=== PATIENT | female | born 2000 | race Caucasian/White ===

== ENCOUNTER 2022-04-12 21:10 | Emergency (ER) | payer OTHER, SELFPAY ==
[2022-04-12 21:21] VITALS: BP 110/71; PULSE 64; RESP 18; TEMP 36.7; O2SAT 99; BMI 19.7
--- NOTE | 2022-04-12 21:51 | ED.GENADULT ---
HPI - General Adult General Chief complaint: Unspecified Complaint, Adult Stated complaint: tight chest, extemities itchy Time Seen by Provider: 04/12/22 21:28 History of Present Illness HPI narrative: This 22-year-old female comes in with report of some itchiness in her extremities this morning. She did take Benadryl which brought relief to those symptoms. Then she developed some tightness in her chest which she does not describe as pain but instead as a feeling like she cannot take of full deep breath. She is otherwise in good health. She does not have any history of asthma. She states that she was sledding down hill a couple days ago and did not have any particular injury event but this was a new activity for her. She denies having any nausea, vomiting, lightheadedness, shortness of breath, or diaphoresis. Related Data Home Medications Medication Instructions Recorded Confirmed No Known Home Medications 04/12/22 04/12/22 Allergies Allergy/AdvReac Type Severity Reaction Status Date / Time No Known Drug Allergies Allergy Verified 04/12/22 21:23 Review of Systems Status of ROS: Reports: 10 or more systems reviewed and unremarkable except as noted in History and below Narrative: Constitutional: No fevers, no weight gain or loss. Eyes: No discharge. No vision changes. HENT: No congestion, no sore throat, no ear pain. Cardiovascular: No chest pain, no palpitations. Respiratory: No shortness of breath, no wheezes, no cough. She feels a tightness across her chest when taking a deep breath. Gastrointestinal: No abdominal pain, no vomiting, no diarrhea. Genitourinary: No dysuria, no hematuria. Musculoskeletal: Normal range of motion. Skin: No rashes. Pruritus this morning relieved with Benadryl. Neurological: No dizziness, weakness, sensory change, speech change. Endo/Heme/Allergies: No bruising or bleeding. No polydipsia. Pysch: no suicidality, no anxiety, no insomnia. All other systems reviewed and are negative. Exam Narrative: Exam Narrative: Constitutional: Well-developed, well-nourished, no acute distress. HEENT: Normocephalic, atraumatic. Neck: Normal range of motion. Nontender. Supple. Heart: Regular. No murmurs. Normal rate. Intact distal pulses. Lungs: Clear to auscultation. No chest discomfort. No wheezes, rhonchi, or rales. Abdomen: Normal bowel sounds. Nontender. No rebound tenderness. Genitalia: Deferred. Back: No midline tenderness. Normal range of motion. Extremities: Normal range of motion. No injury. Skin: Intact. No rash. Warm. No erythema or pallor. Neurologic: No altered sensation. No weakness. Alert and oriented. Psychiatric: No suicidality. No anxiety or depression. No insomnia. Nursing notes and vitals signs are reviewed. Const: Vital Signs, click to edit/add: Vital Signs - 24 hr 04/12/22 21:21 Temperature 98.1 F Pulse Rate [Right Pulse Oximeter] 64 Respiratory Rate 18 Blood Pressure [Ri ght Upper Arm] 110/71 Pulse Oximetry 99 Oxygen Delivery Me thod Room Air Course Vital Signs Vital signs: Initial Vital Signs Temperature 98.1 F 04/12/22 21:21 Temperature Source Temporal Artery Scan 04/12/22 21:21 Pulse Rate 64 04/12/22 21:21 Respiratory Rate 18 04/12/22 21:21 Blood Pressure 110/71 04/12/22 21:21 Blood Pressure Mean 84 04/12/22 21:21 Blood Pressure Position Sitting 04/12/22 21:21 Pulse Oximetry 99 04/12/22 21:21 Oxygen Delivery Method 04/12/22 21:21 Vital Signs Temperature 98.1 F 04/12/22 21:21 Pulse Rate 64 04/12/22 21:21 Respiratory Rate 18 04/12/22 21:21 Blood Pressure 110/71 04/12/22 21:21 Pulse Oximetry 99 04/12/22 21:21 Oxygen Delivery Method 04/12/22 21:21 Temperature 98.1 F 04/12/22 21:21 Pulse Rate 64 04/12/22 21:21 Respiratory Rate 18 04/12/22 21:21 Blood Pressure 110/71 04/12/22 21:21 Pulse Oximetry 99 04/12/22 21:21 Oxygen Delivery Method 04/12/22 21:21 Medical Decision Making MDM Narrative Medical decision making narrative: This patient comes in with the above-stated concerns. She has normal EKG and normal exam along with normal vital signs. Her symptoms of chest tightness do not include pain or other symptoms. She feels some tightness across her chest that is reproduced when taking a deep breath. I did discuss lab and imaging options and in a process of shared decision making the patient declined these. An EKG was done showing normal sinus rhythm and no sign of abnormality. I did use bedside ultrasound unofficially to examine her lungs and her heart showing normal findings. She is okay to be discharged home. I encouraged her to use antihistamines as needed for pruritus. She received a prescription for Toradol. ECG Data Attestation: I personally reviewed and interpreted this ECG as follows: Interpretation: Normal sinus rhythm. Rate is 61 beats per minute. There are no ST or T-wave abnormalities. Discharge Plan Discharge Clinical Impression: Chest wall pain Patient Disposition: Home, Self-Care Condition: Stable Additional Instructions: Take medication as needed and indicated. Activity as tolerated. Follow up with MD or return if worsening. Prescriptions: No Action No Known Home Medications Stand Alone Forms: Cerebrex Info Instructions
== END 2022-04-12 22:25 | disposition home or self-care (01) ==
PROVIDERS: Emergency Provider Emergency Medicine Emergency Medical Services
DX: R07.89 Other chest pain (principal)
CPT/HCPCS: 93005; 99284